=== PATIENT | male | born 1970 | race Caucasian/White ===

== ENCOUNTER 2018-12-08 16:58 | Inpatient (IN) | payer OTHER ==
[2018-12-08] MEDS ORDERED: NITROGLYCERIN (SL) 0.4 MG TAB SL (17:30)
[2018-12-08 17:36] LABS: ADD MAN DIFF? NO
[2018-12-08 17:39] LABS: WHITE BLOOD COUNT 7.4 10^3/ul (4.8-10.8)
[2018-12-08 17:39] LABS: BASOPHIL # 0.1 10^3/ul (0.0-0.1); BASOPHILS % 0.7 % (0.0-2.0); EOSINOPHILS # 0.1 10^3/ul (0.0-0.5); EOSINOPHILS % 1.1 % (0.0-7.0); HEMATOCRIT 44.9 % (42.0-52.0); HEMOGLOBIN 14.2 g/dl (14.0-18.0); LYMPHOCYTES # 1.7 10^3/ul (0.8-2.9); LYMPHOCYTES % 22.4 % (15.0-51.0); MEAN CORPUSCULAR HEMOGLOBIN 27.7 pg (29.0-33.0); MEAN CORPUSCULAR HGB CONC 31.6 g/dl (32.0-37.0); MEAN CORPUSCULAR VOLUME 87.7 fl (82.0-101.0); MEAN PLATELET VOLUME 9.8 fl (7.4-10.4); MONOCYTE # 0.8 10^3/ul (0.3-0.9); MONOCYTES % 11.3 % (0.0-11.0); NEUTROPHIL # 4.7 10^3/ul (1.6-7.5); NEUTROPHILS % 63.4 % (39.0-77.0); PLATELET COUNT 225 10^3/UL (140-415); RED BLOOD COUNT 5.12 10^6/ul (4.70-6.10); RED CELL DISTRIBUTION WIDTH 12.6 % (11.5-14.5)
[2018-12-08] MEDS: ASPIRIN 81 MG TAB PO ×2 (17:40→19:00)
[2018-12-08] MEDS: NITROGLYCERIN 2% 1 GM OINT PKT TD (17:41)
[2018-12-08 18:10] LABS: ANION GAP 8 (5-13); BLOOD UREA NITROGEN 20 mg/dl (7-20); CALCIUM 9.5 mg/dl (8.4-10.2); CARBON DIOXIDE 31 mmol/L (21-31); CHLORIDE 106 mmol/L (97-110); CREATININE 1.04 mg/dl (0.61-1.24); Estimated GFR > 60 mL/min (>60); GLUCOSE 145 mg/dl (70-220); SODIUM 145 mmol/L (135-144)
[2018-12-08 18:23] LABS: TROPONIN-I < 0.012 ng/ml (0.000-0.120)
[2018-12-08] MEDS ORDERED: DOCUSATE SODIUM 100 MG CAP PO (19:00)
[2018-12-08] MEDS ORDERED: ZOLPIDEM 5 MG TAB PO (19:00)
[2018-12-08] MEDS ORDERED: ONDANSETRON 4 MG INJ IV (19:00)
[2018-12-08] MEDS ORDERED: NACL 0.9% 3 ML SYG IV (19:00)
[2018-12-08] MEDS ORDERED: ACETAMINOPHEN 325 MG TAB PO ×2 (19:00)
[2018-12-08] MEDS ORDERED: LORAZEPAM 0.5 MG TAB PO (19:00)
[2018-12-08] MEDS ORDERED: ONDANSETRON 4 MG TAB PO (19:00)
[2018-12-08] MEDS ORDERED: HYDROCODONE/APAP (5/325) TAB PO (19:00)
[2018-12-08 19:29] LABS: CREATINE KINASE 306 IU/L (23-200)
[2018-12-08] MEDS ORDERED: GLUCAGON 1 MG INJ IM (19:30)
[2018-12-08] MEDS ORDERED: GLUCOSE GEL 15 GRAM TUBE PO ×2 (19:30)
[2018-12-08] MEDS ORDERED: DEXTROSE 50% 50 ML SYRINGE IV ×2 (19:30)
[2018-12-08] MEDS ORDERED: GLUCOSE GEL 15 GRAM TUBE BUCCAL (19:30)
[2018-12-08 19:39] LABS: CK-MB 1.77 ng/ml (0.0-2.4)
[2018-12-08] MEDS: INSULIN ASPART [NOVOLOG] 3 ML PEN SC (21:00)
[2018-12-08] MEDS: PIOGLITAZONE 30 MG TAB PO (21:00)
[2018-12-08] MEDS: ACCU-CHEK XX (21:20)
[2018-12-08] MEDS: FAMOTIDINE 20 MG TAB PO (22:14)
[2018-12-08] MEDS: FISH OIL 1,000 MG CAP PO (22:15)
[2018-12-08] MEDS: ATORVASTATIN 20 MG TAB PO (22:15)
[2018-12-08] MEDS: METOPROLOL 25 MG TAB PO (22:16)
[2018-12-08] MEDS: HEPARIN 5,000 UNIT/1 ML VIAL SC (22:30)
[2018-12-08 23:57] LABS: CREATINE KINASE 302 IU/L (23-200)
[2018-12-09 00:10] LABS: CK INDEX 0.7; CK-MB 2.01 ng/ml (0.0-2.4); TROPONIN-I 0.077 ng/ml (0.000-0.120)
[2018-12-09 06:46] LABS: ADD MAN DIFF? NO
[2018-12-09 07:01] LABS: BASOPHILS % 0.5 % (0.0-2.0); EOSINOPHILS # 0.1 10^3/ul (0.0-0.5); EOSINOPHILS % 1.4 % (0.0-7.0); HEMATOCRIT 40.7 % (42.0-52.0); LYMPHOCYTES # 1.8 10^3/ul (0.8-2.9); LYMPHOCYTES % 27.9 % (15.0-51.0); MEAN CORPUSCULAR HGB CONC 31.9 g/dl (32.0-37.0); MEAN CORPUSCULAR VOLUME 87.7 fl (82.0-101.0); MEAN PLATELET VOLUME 10.2 fl (7.4-10.4); MONOCYTE # 0.6 10^3/ul (0.3-0.9); MONOCYTES % 9.5 % (0.0-11.0); NEUTROPHIL # 3.8 10^3/ul (1.6-7.5); NEUTROPHILS % 59.8 % (39.0-77.0); PLATELET COUNT 193 10^3/UL (140-415); RED BLOOD COUNT 4.64 10^6/ul (4.70-6.10); RED CELL DISTRIBUTION WIDTH 12.7 % (11.5-14.5)
[2018-12-09 07:01] LABS: WHITE BLOOD COUNT 6.3 10^3/ul (4.8-10.8)
[2018-12-09 07:17] LABS: CREATINE KINASE 309 IU/L (23-200)
[2018-12-09] MEDS: ACCU-CHEK XX ×6 (07:25→19:48)
[2018-12-09 07:29] LABS: CK INDEX 0.8
[2018-12-09 07:41] LABS: CK-MB 2.46 ng/ml (0.0-2.4)
[2018-12-09 07:44] LABS: TROPONIN-I 0.242 ng/ml (0.000-0.120)
[2018-12-09] MEDS ORDERED: metFORMIN (XR) 500 MG TAB PO (07:55)
[2018-12-09] MEDS: INSULIN ASPART [NOVOLOG] 3 ML PEN SC ×4 (07:55→20:14)
[2018-12-09 08:07] LABS: ALANINE AMINOTRANSFERASE 47 IU/L (13-69); ALBUMIN 3.8 g/dl (3.3-4.9); ALBUMIN/GLOBULIN RATIO 1.65; ALKALINE PHOSPHATASE 41 IU/L (42-121); ANION GAP 8 (5-13); ASPARTATE AMINO TRANSFERASE 24 IU/L (15-46); BILIRUBIN,INDIRECT 0.2 mg/dl (0-1.1); BILIRUBIN,TOTAL 0.2 mg/dl (0.2-1.3); BLOOD UREA NITROGEN 19 mg/dl (7-20); CALCIUM 9.3 mg/dl (8.4-10.2); CARBON DIOXIDE 27 mmol/L (21-31); CHLORIDE 109 mmol/L (97-110); CREATININE 0.89 mg/dl (0.61-1.24); Estimated GFR > 60 mL/min (>60); GLUCOSE 108 mg/dl (70-220); POTASSIUM 4.1 mmol/L (3.5-5.1); SODIUM 144 mmol/L (135-144); TOTAL PROTEIN 6.1 g/dl (6.1-8.1)
[2018-12-09] MEDS ORDERED: FENTAnyl 50 MCG/ML VIAL (08:27)
[2018-12-09] MEDS ORDERED: HEPARIN 1000 UNITS/NS (A-LINE) 1,000 ML (08:27)
[2018-12-09] MEDS ORDERED: MIDAZOLAM 1 MG/ML 2 ML INJ (08:27)
[2018-12-09] MEDS ORDERED: VERAPAMIL 5 MG INJ (08:27)
[2018-12-09] MEDS ORDERED: HEPARIN 1000 UNITS/ML 10 ML INJ (08:27)
[2018-12-09] MEDS ORDERED: LIDOCAINE 1% (MDV) 20 ML INJ (08:27)
[2018-12-09] MEDS ORDERED: NITROGLYCERIN (IC) 100 MCG/ML INJ (08:28)
[2018-12-09 09:21] LABS: HEMOGLOBIN A1C 7.5 % (0-5.9)
[2018-12-09] MEDS ORDERED: IOHEXOL 350MG/ML 50 ML BTL (09:37)
[2018-12-09] MEDS: NITROGLYCERIN (SL) 0.4 MG TAB SL ×2 (12:15→14:06)
[2018-12-09] MEDS: ASPIRIN 81 MG TAB PO (12:41)
[2018-12-09] MEDS: FISH OIL 1,000 MG CAP PO ×2 (12:41→20:13)
[2018-12-09] MEDS: METOPROLOL 25 MG TAB PO ×2 (12:43→20:14)
[2018-12-09] MEDS: FAMOTIDINE 20 MG TAB PO ×2 (12:43→20:13)
[2018-12-09] MEDS: FENOFIBRATE 145 MG TAB PO (12:43)
[2018-12-09] MEDS: ISOSORBIDE MONONITRATE(SR)30 MG TAB PO (13:03)
[2018-12-09] MEDS: EMPAGLIFLOZIN 10 MG TABLET PO (13:03)
[2018-12-09 13:29] LABS: ADD MAN DIFF? NO
[2018-12-09 13:31] LABS: BASOPHILS % 0.5 % (0.0-2.0); EOSINOPHILS # 0.1 10^3/ul (0.0-0.5); EOSINOPHILS % 0.7 % (0.0-7.0); HEMOGLOBIN 13.7 g/dl (14.0-18.0); LYMPHOCYTES # 1.7 10^3/ul (0.8-2.9); LYMPHOCYTES % 21.2 % (15.0-51.0); MEAN CORPUSCULAR HEMOGLOBIN 27.8 pg (29.0-33.0); MEAN CORPUSCULAR HGB CONC 31.9 g/dl (32.0-37.0); MEAN CORPUSCULAR VOLUME 87.2 fl (82.0-101.0); MEAN PLATELET VOLUME 10.3 fl (7.4-10.4); MONOCYTE # 0.7 10^3/ul (0.3-0.9); MONOCYTES % 8.8 % (0.0-11.0); NEUTROPHIL # 5.6 10^3/ul (1.6-7.5); NEUTROPHILS % 67.9 % (39.0-77.0); PLATELET COUNT 231 10^3/UL (140-415); RED BLOOD COUNT 4.93 10^6/ul (4.70-6.10); RED CELL DISTRIBUTION WIDTH 12.8 % (11.5-14.5)
[2018-12-09 13:31] LABS: WHITE BLOOD COUNT 8.2 10^3/ul (4.8-10.8)
[2018-12-09 13:50] LABS: INR 0.86; PROTIME 11.8 Sec (11.9-14.9); PT RATIO 0.9
[2018-12-09 13:51] LABS: PARTIAL THROMBOPLASTIN TIME 25.8 Sec (23.0-35.0)
[2018-12-09 14:05] LABS: CK-MB 2.12 ng/ml (0.0-2.4); TROPONIN-I 0.111 ng/ml (0.000-0.120)
[2018-12-09 16:11] LABS: CK INDEX 0.7; CREATINE KINASE 299 IU/L (23-200)
[2018-12-09] MEDS: HEPARIN 1000 UNITS/ML 10 ML INJ IV (16:16)
[2018-12-09] MEDS: HEPARIN 25000 UNITS/250 ML 250 ML IV (16:28)
[2018-12-09] MEDS: CEFAZOLIN 2 GM/50 ML (PMX) 50 ML IVPB (20:12)
[2018-12-09] MEDS: PIOGLITAZONE 30 MG TAB PO (20:13)
[2018-12-09] MEDS: ATORVASTATIN 20 MG TAB PO (20:13)
[2018-12-09] MEDS ORDERED: ATORVASTATIN 20 MG TAB PO (21:00)
[2018-12-09 23:01] LABS: PARTIAL THROMBOPLASTIN TIME 25.8 Sec (23.0-35.0)
[2018-12-10] MEDS: HEPARIN 1000 UNITS/ML 10 ML INJ IV (00:15)
[2018-12-10 07:38] LABS: ADD MAN DIFF? NO
[2018-12-10 07:42] LABS: WHITE BLOOD COUNT 7.9 10^3/ul (4.8-10.8)
[2018-12-10 07:42] LABS: BASOPHILS % 0.3 % (0.0-2.0); EOSINOPHILS # 0.1 10^3/ul (0.0-0.5); EOSINOPHILS % 0.8 % (0.0-7.0); HEMATOCRIT 43.2 % (42.0-52.0); LYMPHOCYTES # 1.5 10^3/ul (0.8-2.9); LYMPHOCYTES % 18.4 % (15.0-51.0); MEAN CORPUSCULAR HEMOGLOBIN 27.9 pg (29.0-33.0); MEAN CORPUSCULAR HGB CONC 32.4 g/dl (32.0-37.0); MEAN CORPUSCULAR VOLUME 86.1 fl (82.0-101.0); MEAN PLATELET VOLUME 9.7 fl (7.4-10.4); MONOCYTE # 0.9 10^3/ul (0.3-0.9); MONOCYTES % 10.9 % (0.0-11.0); NEUTROPHIL # 5.5 10^3/ul (1.6-7.5); PLATELET COUNT 209 10^3/UL (140-415); RED BLOOD COUNT 5.02 10^6/ul (4.70-6.10)
[2018-12-10] MEDS: INSULIN ASPART [NOVOLOG] 3 ML PEN SC (07:55)
[2018-12-10 08:02] LABS: PARTIAL THROMBOPLASTIN TIME 30.7 Sec (23.0-35.0)
[2018-12-10] MEDS: ACCU-CHEK XX ×6 (08:03→23:46)
[2018-12-10 08:08] LABS: CHOL/HDL RATIO 3.3 RATIO; HDL CHOLESTEROL 37 mg/dl (27-67); LDL CHOLESTEROL,CALCULATED 53 mg/dl; TRIGLYCERIDES 174 mg/dl (0-149)
[2018-12-10 08:08] LABS: CHOLESTEROL 125 mg/dl (100-200)
[2018-12-10 08:09] LABS: ANION GAP 10 (5-13); BLOOD UREA NITROGEN 17 mg/dl (7-20); CARBON DIOXIDE 27 mmol/L (21-31); CHLORIDE 106 mmol/L (97-110); CREATININE 1.02 mg/dl (0.61-1.24); Estimated GFR > 60 mL/min (>60); GLUCOSE 138 mg/dl (70-220); SODIUM 143 mmol/L (135-144)
[2018-12-10 08:10] LABS: CALCIUM 9.4 mg/dl (8.4-10.2)
[2018-12-10] MEDS: METOPROLOL 25 MG TAB PO (08:23)
[2018-12-10] MEDS: FAMOTIDINE 20 MG TAB PO (08:23)
[2018-12-10] MEDS: FISH OIL 1,000 MG CAP PO (08:23)
[2018-12-10] MEDS: ASPIRIN 81 MG TAB PO (08:23)
[2018-12-10] MEDS: FENOFIBRATE 145 MG TAB PO (08:23)
[2018-12-10] MEDS: ISOSORBIDE MONONITRATE(SR)30 MG TAB PO (08:23)
[2018-12-10] MEDS: EMPAGLIFLOZIN 10 MG TABLET PO (08:23)
[2018-12-10] MEDS ORDERED: MIDAZOLAM 5 ML ×2 (10:06→10:10)
[2018-12-10] MEDS ORDERED: PROPOFOL 100 ML (10:11)
[2018-12-10] MEDS ORDERED: HEPARIN 1000 UNITS/ML 10 ML INJ ×2 (10:12→11:55)
[2018-12-10] MEDS ORDERED: ETOMIDATE 20 MG INJ (10:28)
[2018-12-10] MEDS ORDERED: PROPOFOL 20 ML (10:28)
[2018-12-10] MEDS ORDERED: AMINOCAPROIC ACID 5 GM INJ (10:28)
[2018-12-10] MEDS ORDERED: LIDOCAINE 2% (SDV) 5 ML INJ (10:29)
[2018-12-10] MEDS ORDERED: PROTAMINE 250 MG INJ (10:38)
[2018-12-10] MEDS ORDERED: SUCCINYLCHOLINE CHLORIDE 100 MG/5 ML SYG IV (10:38)
[2018-12-10] MEDS ORDERED: ROCURONIUM 50 MG INJ (10:38)
[2018-12-10] MEDS: PAPAVERINE 60 MG INJ (11:06)
[2018-12-10] MEDS: VANCOMYCIN 1 GM INJ (11:06)
[2018-12-10] MEDS: HEPARIN 1000 UNITS/ML 10 ML INJ (11:06)
[2018-12-10] MEDS: ASPIRIN 600 MG SUPP PR (11:30)
[2018-12-10] MEDS ORDERED: CA CHLORIDE 10% 10 ML SYRINGE ×2 (11:55→15:51)
[2018-12-10] MEDS ORDERED: FENTAnyl 50 MCG/ML VIAL IV ×2 (12:00)
[2018-12-10] MEDS ORDERED: ONDANSETRON 4 MG INJ IV (12:00)
[2018-12-10] MEDS ORDERED: LEVALBUTEROL (NEB) 1.25 MG/0.5 ML AMP HHN (12:00)
[2018-12-10] MEDS ORDERED: MIDAZOLAM 1 MG/ML 2 ML INJ IV (12:00)
[2018-12-10] MEDS ORDERED: morphine 2 MG INJ IV ×2 (12:00)
[2018-12-10] MEDS ORDERED: hydrALAzine 20 MG INJ IV (12:00)
[2018-12-10] MEDS ORDERED: LORAZEPAM 2 MG INJ IV (12:00)
[2018-12-10] MEDS ORDERED: HYDROmorphONE 0.5 MG/0.5 ML SYG IV ×5 (12:00→16:30)
[2018-12-10] MEDS ORDERED: morphine 10 MG INJ IV (12:00)
[2018-12-10] MEDS ORDERED: DIPHENHYDRAMINE 50 MG INJ IV (12:00)
[2018-12-10] MEDS ORDERED: IPRATROPIUM (NEB) 0.5 MG/2.5 ML AMP HHN (12:00)
[2018-12-10] MEDS ORDERED: MEPERIDINE 25 MG INJ IV (12:00)
[2018-12-10] MEDS ORDERED: INSULIN REGULAR, HUMAN 100 UNIT/1 ML 3ML VIAL (12:00)
[2018-12-10] MEDS ORDERED: MILRINONE LACTATE 1 MG/ML VIAL (12:00)
[2018-12-10] MEDS ORDERED: LABETALOL HCL 20MG INJ IV (12:00)
[2018-12-10] MEDS ORDERED: ALBUMIN HUMAN 25% 100 ML INJ (12:00)
[2018-12-10] MEDS ORDERED: CEFAZOLIN 1 GM INJ (12:58)
[2018-12-10] MEDS ORDERED: NITROGLYCERIN 50 MG/D5W (PMX) 250 ML (13:13)
[2018-12-10] MEDS ORDERED: morphine 10 MG INJ (13:21)
[2018-12-10] MEDS ORDERED: FUROSEMIDE 20 MG INJ ×2 (15:05→15:23)
[2018-12-10] MEDS ORDERED: NA BICARBONATE 8.4% 50 ML SYG (15:51)
[2018-12-10] MEDS ORDERED: DEXTROSE 50% 50 ML SYRINGE (16:29)
[2018-12-10] MEDS ORDERED: ACCU-CHEK XX (16:30)
[2018-12-10] MEDS: EPINEPHrine 4 MG in DEXTROSE 5% 246 ML IV (16:30)
[2018-12-10] MEDS ORDERED: DEXTROSE 50% 50 ML SYRINGE IV ×4 (16:30→20:30)
[2018-12-10] MEDS: HEPARIN (10000 UNITS/ML) 10,000 UNIT, MILRINONE LACTATE 10 MG in SOD CHLORIDE 0.9% 1,00... SC (16:30)
[2018-12-10] MEDS ORDERED: DOPamine-D5W 1.6 MG/ML 250 ML IV (16:30)
[2018-12-10] MEDS: NORepinephrine 8MG/250 ML (PMX 250 ML IV (16:30)
[2018-12-10] MEDS ORDERED: INSULIN HUMAN REGULAR 100 UNIT in SOD CHLORIDE 0.9% 99 ML IV (16:30)
[2018-12-10] MEDS ORDERED: ACETAMINOPHEN 325 MG TAB PO (16:30)
[2018-12-10] MEDS: MILRINONE LACTATE 2 MG in SOD CHLORIDE 0.9% 50 ML IV (16:30)
[2018-12-10] MEDS ORDERED: MAGNESIUM SULFATE 1 GM/D5W 100 ML IVPB (16:30)
[2018-12-10] MEDS: INSULIN HUMAN REGULAR 100 UNIT in SOD CHLORIDE 0.9% 99 ML IVPB (16:30)
[2018-12-10] MEDS: PHENYLephrine 20MG IN 250 ML 250 ML IV (16:32)
[2018-12-10] MEDS ORDERED: morphine 2 MG INJ (16:39)
[2018-12-10 16:40] LABS: ADD MAN DIFF? NO
[2018-12-10 16:41] LABS: BASOPHILS % 0.3 % (0.0-2.0); EOSINOPHILS % 0.5 % (0.0-7.0); HEMATOCRIT 28.6 % (42.0-52.0); HEMOGLOBIN 9.4 g/dl (14.0-18.0); LYMPHOCYTES # 1.5 10^3/ul (0.8-2.9); LYMPHOCYTES % 19.5 % (15.0-51.0); MEAN CORPUSCULAR HEMOGLOBIN 28.4 pg (29.0-33.0); MEAN CORPUSCULAR HGB CONC 32.9 g/dl (32.0-37.0); MEAN CORPUSCULAR VOLUME 86.4 fl (82.0-101.0); MONOCYTE # 0.7 10^3/ul (0.3-0.9); MONOCYTES % 9.8 % (0.0-11.0); NEUTROPHIL # 5.2 10^3/ul (1.6-7.5); NEUTROPHILS % 69.4 % (39.0-77.0); PLATELET COUNT 131 10^3/UL (140-415); RED BLOOD COUNT 3.31 10^6/ul (4.70-6.10); RED CELL DISTRIBUTION WIDTH 12.8 % (11.5-14.5)
[2018-12-10 16:41] LABS: WHITE BLOOD COUNT 7.5 10^3/ul (4.8-10.8)
[2018-12-10] MEDS ORDERED: POTASSIUM CHLORIDE 100 ML (17:01)
[2018-12-10] MEDS ORDERED: ALBUMIN HUMAN 5% 250 ML (17:01)
[2018-12-10 17:03] LABS: ANION GAP 9 (5-13); BLOOD UREA NITROGEN 15 mg/dl (7-20); CALCIUM 11.7 mg/dl (8.4-10.2); CARBON DIOXIDE 26 mmol/L (21-31); CHLORIDE 110 mmol/L (97-110); CREATININE 1.02 mg/dl (0.61-1.24); Estimated GFR > 60 mL/min (>60); GLUCOSE 213 mg/dl (70-220); MAGNESIUM 2.7 mg/dl (1.7-2.5); POTASSIUM 3.6 mmol/L (3.5-5.1); SODIUM 145 mmol/L (135-144)
[2018-12-10 17:07] LABS: PROTIME 15.3 Sec (11.9-14.9); PT RATIO 1.2
[2018-12-10 17:08] LABS: PARTIAL THROMBOPLASTIN TIME 29.3 Sec (23.0-35.0)
[2018-12-10] MEDS: morphine 2 MG INJ IV (17:34)
[2018-12-10] MEDS: POTASSIUM CHLORIDE 50 ML IVPB ×3 (17:35→18:47)
[2018-12-10 17:56] LABS: AADO2 Arterial 605.5 mmHg (7.0-24.0); Arterial Base Excess 2.8 mmol/L (-3.0-3); Arterial Blood Gas Oxygen Sat 93.4 mmHG (95.0-98.0); Arterial COHb 0.3 % (0.0-3.0); Arterial Fraction of Oxyhgb 92.9 % (93.0-99.0); Arterial HCO3 26.9 mmol/L (22.0-26.0); Arterial MetHb 0.2 % (0.0-1.5); Arterial pCO2 39.6 mmhg (35-45); MODE VENT - AC; Site A-Line
[2018-12-10] MEDS: NITROGLYCERIN 50 MG/D5W (PMX) 250 ML IV (18:07)
[2018-12-10] MEDS ORDERED: ALBUMIN HUMAN 5% 250 ML IV (18:30)
[2018-12-10] MEDS: PROPOFOL 100 ML IV (18:46)
[2018-12-10] MEDS: POTASSIUM CHLORIDE 40 MEQ, CALCIUM CHLORIDE 10% 1 GM in DEXTROSE 5%-0.225% NACL 1,000 ML IV (18:53)
[2018-12-10] MEDS: FAMOTIDINE 20 MG INJ IV (20:00)
[2018-12-10] MEDS: INSULIN HUMAN REGULAR 100 UNIT in SOD CHLORIDE 0.9% 99 ML IV (20:32)
[2018-12-10 20:53] LABS: ABNORMAL IP MESSAGE 1; ADD MAN DIFF? NO; BASOPHILS % 0.1 % (0.0-2.0); EOSINOPHILS % 0.1 % (0.0-7.0); HEMATOCRIT 33.7 % (42.0-52.0); HEMOGLOBIN 10.6 g/dl (14.0-18.0); LYMPHOCYTES # 1.7 10^3/ul (0.8-2.9); LYMPHOCYTES % 12.6 % (15.0-51.0); MEAN CORPUSCULAR HEMOGLOBIN 27.5 pg (29.0-33.0); MEAN CORPUSCULAR HGB CONC 31.5 g/dl (32.0-37.0); MEAN CORPUSCULAR VOLUME 87.5 fl (82.0-101.0); MEAN PLATELET VOLUME 10.2 fl (7.4-10.4); MONOCYTE # 1.6 10^3/ul (0.3-0.9); MONOCYTES % 11.7 % (0.0-11.0); NEUTROPHIL # 10.3 10^3/ul (1.6-7.5); NEUTROPHILS % 74.9 % (39.0-77.0); PLATELET COUNT 189 10^3/UL (140-415); POSITIVE DIFF @See below; RED BLOOD COUNT 3.85 10^6/ul (4.70-6.10); RED CELL DISTRIBUTION WIDTH 13.1 % (11.5-14.5)
[2018-12-10 20:53] LABS: WHITE BLOOD COUNT 13.8 10^3/ul (4.8-10.8)
[2018-12-10] MEDS ORDERED: FAMOTIDINE 20 MG TAB PO (21:00)
[2018-12-10] MEDS: ATORVASTATIN 80 MG TAB PO (21:00)
[2018-12-10] MEDS: CEFAZOLIN 1 GM/50 ML (PMX) 50 ML IVPB (21:01)
[2018-12-10 21:17] LABS: ANION GAP 13 (5-13); BLOOD UREA NITROGEN 17 mg/dl (7-20); CALCIUM 10.9 mg/dl (8.4-10.2); CARBON DIOXIDE 23 mmol/L (21-31); CHLORIDE 109 mmol/L (97-110); CREATININE 1.28 mg/dl (0.61-1.24); Estimated GFR 60 mL/min (>60); GLUCOSE 219 mg/dl (70-220); MAGNESIUM 2.5 mg/dl (1.7-2.5); PHOSPHORUS 6.9 mg/dl (2.5-4.9); POTASSIUM 4.6 mmol/L (3.5-5.1); SODIUM 145 mmol/L (135-144)
[2018-12-10 22:54] LABS: AADO2 Arterial 269.6 mmHg (7.0-24.0); Arterial Base Excess 1.1 mmol/L (-3.0-3); Arterial Blood Gas Oxygen Sat 97.2 mmHG (95.0-98.0); Arterial COHb 0.3 % (0.0-3.0); Arterial Fraction of Oxyhgb 96.5 % (93.0-99.0); Arterial HCO3 26.6 mmol/L (22.0-26.0); Arterial MetHb 0.4 % (0.0-1.5); Arterial pCO2 45.7 mmhg (35-45); MODE VENT - AC; Site A-Line
[2018-12-11 00:16] LABS: AADO2 Arterial 95.1 mmHg (7.0-24.0); Arterial Base Excess 2.3 mmol/L (-3.0-3); Arterial Blood Gas Oxygen Sat 91.8 mmHG (95.0-98.0); Arterial COHb 0.3 % (0.0-3.0); Arterial Fraction of Oxyhgb 91.2 % (93.0-99.0); Arterial HCO3 27.4 mmol/L (22.0-26.0); Arterial MetHb 0.4 % (0.0-1.5); Arterial pCO2 44.5 mmhg (35-45); Blood Gas PS 8; MODE VENT - CPAP; Site A-Line
[2018-12-11] MEDS: ACCU-CHEK XX ×23 (00:59→23:31)
[2018-12-11] MEDS: ONDANSETRON 4 MG INJ IV (01:03)
[2018-12-11] MEDS: CEFAZOLIN 1 GM/50 ML (PMX) 50 ML IVPB ×2 (04:49→12:15)
[2018-12-11 05:22] LABS: ADD MAN DIFF? NO
[2018-12-11 05:30] LABS: WHITE BLOOD COUNT 11.9 10^3/ul (4.8-10.8)
[2018-12-11 05:30] LABS: ABNORMAL IP MESSAGE 1; BASOPHILS % 0.2 % (0.0-2.0); HEMATOCRIT 35.1 % (42.0-52.0); HEMOGLOBIN 11.2 g/dl (14.0-18.0); LYMPHOCYTES # 0.6 10^3/ul (0.8-2.9); LYMPHOCYTES % 4.8 % (15.0-51.0); MEAN CORPUSCULAR HEMOGLOBIN 28.1 pg (29.0-33.0); MEAN CORPUSCULAR HGB CONC 31.9 g/dl (32.0-37.0); MEAN CORPUSCULAR VOLUME 88.2 fl (82.0-101.0); MEAN PLATELET VOLUME 10.9 fl (7.4-10.4); MONOCYTE # 1.4 10^3/ul (0.3-0.9); NEUTROPHIL # 9.8 10^3/ul (1.6-7.5); NEUTROPHILS % 82.5 % (39.0-77.0); PLATELET COUNT 184 10^3/UL (140-415); POSITIVE DIFF @See below; RED BLOOD COUNT 3.98 10^6/ul (4.70-6.10); RED CELL DISTRIBUTION WIDTH 13.2 % (11.5-14.5)
[2018-12-11 05:37] LABS: AADO2 Arterial 86.5 mmHg (7.0-24.0); Arterial Base Excess -0.2 mmol/L (-3.0-3); Arterial Blood Gas Oxygen Sat 92.3 mmHG (95.0-98.0); Arterial COHb 0.3 % (0.0-3.0); Arterial Fraction of Oxyhgb 91.7 % (93.0-99.0); Arterial HCO3 24.7 mmol/L (22.0-26.0); Arterial MetHb 0.3 % (0.0-1.5); MODE NASAL CANNULA; Site A-Line
[2018-12-11 05:41] LABS: INR 1.03; PROTIME 13.6 Sec (11.9-14.9); PT RATIO 1.1
[2018-12-11 06:02] LABS: ANION GAP 10 (5-13); BLOOD UREA NITROGEN 15 mg/dl (7-20); CALCIUM 10.6 mg/dl (8.4-10.2); CARBON DIOXIDE 28 mmol/L (21-31); CHLORIDE 110 mmol/L (97-110); CREATININE 1.13 mg/dl (0.61-1.24); Estimated GFR > 60 mL/min (>60); GLUCOSE 122 mg/dl (70-220); MAGNESIUM 2.3 mg/dl (1.7-2.5); POTASSIUM 4.7 mmol/L (3.5-5.1); SODIUM 148 mmol/L (135-144)
[2018-12-11] MEDS: PROPOFOL 100 ML IV (06:30)
[2018-12-11] MEDS: FAMOTIDINE 20 MG INJ IV ×2 (08:24→20:38)
[2018-12-11] MEDS: FUROSEMIDE 20 MG INJ IV ×3 (08:28→11:10)
[2018-12-11] MEDS: ENOXAPARIN 40 MG/0.4 ML SYG SC (08:29)
[2018-12-11] MEDS: OXYCODONE/ACETAMINOPHEN (5/325) TAB PO (08:32)
[2018-12-11] MEDS ORDERED: ASPIRIN (EC) 81 MG TAB PO (09:00)
[2018-12-11] MEDS: FUROSEMIDE 20 MG INJ IM (09:06)
[2018-12-11] MEDS: METOPROLOL 25 MG TAB PO ×2 (09:06→20:39)
[2018-12-11] MEDS: ASPIRIN (EC) 325 MG TAB PO (09:15)
[2018-12-11] MEDS: IBUPROFEN 600 MG TAB PO ×3 (09:15→20:39)
[2018-12-11] MEDS: POTASSIUM CHLORIDE 40 MEQ, CALCIUM CHLORIDE 10% 1 GM in DEXTROSE 5%-0.225% NACL 1,000 ML IV (11:40)
[2018-12-11] MEDS ORDERED: GLUCOSE GEL 15 GRAM TUBE BUCCAL (18:30)
[2018-12-11] MEDS ORDERED: GLUCAGON 1 MG INJ IM (18:30)
[2018-12-11] MEDS ORDERED: GLUCOSE GEL 15 GRAM TUBE PO ×2 (18:30)
[2018-12-11] MEDS ORDERED: DEXTROSE 50% 50 ML SYRINGE IV ×2 (18:30)
[2018-12-11] MEDS: ATORVASTATIN 80 MG TAB PO (20:38)
[2018-12-11] MEDS ORDERED: metFORMIN (XR) 500 MG TAB PO (21:00)
[2018-12-12] MEDS: ACCU-CHEK XX ×9 (00:42→08:35)
[2018-12-12] MEDS: POTASSIUM CHLORIDE 40 MEQ, CALCIUM CHLORIDE 10% 1 GM in DEXTROSE 5%-0.225% NACL 1,000 ML IV ×2 (03:56→22:00)
[2018-12-12 05:06] LABS: ADD MAN DIFF? NO
[2018-12-12 05:11] LABS: WHITE BLOOD COUNT 11.6 10^3/ul (4.8-10.8)
[2018-12-12 05:11] LABS: BASOPHILS % 0.3 % (0.0-2.0); EOSINOPHILS # 0.2 10^3/ul (0.0-0.5); EOSINOPHILS % 1.6 % (0.0-7.0); HEMATOCRIT 35.3 % (42.0-52.0); HEMOGLOBIN 11.1 g/dl (14.0-18.0); LYMPHOCYTES % 8.7 % (15.0-51.0); MEAN CORPUSCULAR HEMOGLOBIN 27.8 pg (29.0-33.0); MEAN CORPUSCULAR HGB CONC 31.4 g/dl (32.0-37.0); MEAN CORPUSCULAR VOLUME 88.5 fl (82.0-101.0); MEAN PLATELET VOLUME 10.5 fl (7.4-10.4); MONOCYTE # 1.5 10^3/ul (0.3-0.9); MONOCYTES % 12.6 % (0.0-11.0); NEUTROPHIL # 8.8 10^3/ul (1.6-7.5); NEUTROPHILS % 76.4 % (39.0-77.0); PLATELET COUNT 146 10^3/UL (140-415); RED BLOOD COUNT 3.99 10^6/ul (4.70-6.10); RED CELL DISTRIBUTION WIDTH 13.3 % (11.5-14.5)
[2018-12-12 05:39] LABS: ANION GAP 7 (5-13); BLOOD UREA NITROGEN 19 mg/dl (7-20); CALCIUM 9.7 mg/dl (8.4-10.2); CARBON DIOXIDE 30 mmol/L (21-31); CHLORIDE 107 mmol/L (97-110); CREATININE 1.17 mg/dl (0.61-1.24); Estimated GFR > 60 mL/min (>60); GLUCOSE 111 mg/dl (70-220); POTASSIUM 4.3 mmol/L (3.5-5.1); SODIUM 144 mmol/L (135-144)
[2018-12-12] MEDS: ENOXAPARIN 40 MG/0.4 ML SYG SC (08:30)
[2018-12-12] MEDS: FAMOTIDINE 20 MG INJ IV ×2 (08:32→20:48)
[2018-12-12] MEDS: IBUPROFEN 600 MG TAB PO ×3 (08:33→20:47)
[2018-12-12] MEDS: EMPAGLIFLOZIN 10 MG TABLET PO (08:33)
[2018-12-12] MEDS: OXYCODONE/ACETAMINOPHEN (5/325) TAB PO (09:15)
[2018-12-12] MEDS: METOPROLOL 25 MG TAB PO ×2 (09:16→20:48)
[2018-12-12] MEDS: ASPIRIN 81 MG TAB PO (09:16)
[2018-12-12] MEDS: CLOPIDOGREL 75 MG TAB PO (09:16)
[2018-12-12] MEDS: metFORMIN (XR) 500 MG TAB PO ×2 (11:51→20:47)
[2018-12-12] MEDS: INSULIN ASPART [NOVOLOG] 3 ML PEN SC ×3 (11:58→20:45)
[2018-12-12] MEDS: DOCUSATE SODIUM 100 MG CAP PO ×2 (15:17→20:46)
[2018-12-12] MEDS: POLYETHYLENE GLYCOL 17 GM PACKET PO (15:19)
[2018-12-12] MEDS: REPAGLINIDE 1 MG TAB PO (17:27)
[2018-12-12] MEDS: ATORVASTATIN 80 MG TAB PO (20:47)
[2018-12-13 05:04] LABS: ADD MAN DIFF? NO
[2018-12-13 05:12] LABS: WHITE BLOOD COUNT 9.3 10^3/ul (4.8-10.8)
[2018-12-13 05:12] LABS: BASOPHILS % 0.4 % (0.0-2.0); EOSINOPHILS # 0.3 10^3/ul (0.0-0.5); EOSINOPHILS % 2.9 % (0.0-7.0); HEMATOCRIT 33.5 % (42.0-52.0); HEMOGLOBIN 10.6 g/dl (14.0-18.0); LYMPHOCYTES # 1.2 10^3/ul (0.8-2.9); LYMPHOCYTES % 13.4 % (15.0-51.0); MEAN CORPUSCULAR HEMOGLOBIN 27.9 pg (29.0-33.0); MEAN CORPUSCULAR HGB CONC 31.6 g/dl (32.0-37.0); MEAN CORPUSCULAR VOLUME 88.2 fl (82.0-101.0); MEAN PLATELET VOLUME 10.2 fl (7.4-10.4); MONOCYTE # 1.2 10^3/ul (0.3-0.9); MONOCYTES % 12.5 % (0.0-11.0); NEUTROPHIL # 6.5 10^3/ul (1.6-7.5); NEUTROPHILS % 70.2 % (39.0-77.0); PLATELET COUNT 191 10^3/UL (140-415)
[2018-12-13 05:31] LABS: ANION GAP 10 (5-13); BLOOD UREA NITROGEN 24 mg/dl (7-20); CALCIUM 9.4 mg/dl (8.4-10.2); CARBON DIOXIDE 28 mmol/L (21-31); CHLORIDE 106 mmol/L (97-110); CREATININE 1.01 mg/dl (0.61-1.24); Estimated GFR > 60 mL/min (>60); GLUCOSE 86 mg/dl (70-220); POTASSIUM 4.2 mmol/L (3.5-5.1); SODIUM 144 mmol/L (135-144)
[2018-12-13] MEDS: INSULIN ASPART [NOVOLOG] 3 ML PEN SC ×4 (07:35→21:00)
[2018-12-13] MEDS: REPAGLINIDE 1 MG TAB PO ×3 (07:56→17:40)
[2018-12-13] MEDS: ASPIRIN 81 MG TAB PO (09:01)
[2018-12-13] MEDS: FAMOTIDINE 20 MG INJ IV ×2 (09:01→22:17)
[2018-12-13] MEDS: DOCUSATE SODIUM 100 MG CAP PO ×2 (09:01→22:16)
[2018-12-13] MEDS: CLOPIDOGREL 75 MG TAB PO (09:02)
[2018-12-13] MEDS: metFORMIN (XR) 500 MG TAB PO ×2 (09:07→22:25)
[2018-12-13] MEDS: EMPAGLIFLOZIN 10 MG TABLET PO (09:07)
[2018-12-13] MEDS: METOPROLOL 25 MG TAB PO ×2 (09:08→22:26)
[2018-12-13] MEDS: IBUPROFEN 600 MG TAB PO ×2 (09:14→13:04)
[2018-12-13] MEDS: ENOXAPARIN 40 MG/0.4 ML SYG SC (09:25)
[2018-12-13] MEDS: OXYCODONE/ACETAMINOPHEN (5/325) TAB PO (13:47)
[2018-12-13] MEDS: ATORVASTATIN 80 MG TAB PO (22:16)
[2018-12-13] MEDS: IBUPROFEN 400 MG TAB PO (22:17)
[2018-12-14] MEDS: INSULIN ASPART [NOVOLOG] 3 ML PEN SC ×4 (08:00→21:00)
[2018-12-14] MEDS: FAMOTIDINE 20 MG INJ IV ×2 (08:56→21:31)
[2018-12-14] MEDS: CLOPIDOGREL 75 MG TAB PO (08:56)
[2018-12-14] MEDS: EMPAGLIFLOZIN 10 MG TABLET PO (08:57)
[2018-12-14] MEDS: REPAGLINIDE 1 MG TAB PO ×3 (08:57→17:07)
[2018-12-14] MEDS: ASPIRIN 81 MG TAB PO (08:57)
[2018-12-14] MEDS: METOPROLOL 25 MG TAB PO ×2 (08:58→21:31)
[2018-12-14] MEDS: DOCUSATE SODIUM 100 MG CAP PO ×2 (08:58→21:30)
[2018-12-14] MEDS: IBUPROFEN 400 MG TAB PO ×3 (08:59→21:31)
[2018-12-14] MEDS: metFORMIN (XR) 500 MG TAB PO ×2 (09:02→20:06)
[2018-12-14] MEDS: ENOXAPARIN 40 MG/0.4 ML SYG SC (09:13)
[2018-12-14] MEDS: ONDANSETRON 4 MG INJ IV (15:02)
[2018-12-14] MEDS: ATORVASTATIN 80 MG TAB PO (21:31)
[2018-12-14] MEDS: OXYCODONE/ACETAMINOPHEN (5/325) TAB PO (22:17)
[2018-12-15 06:08] LABS: ADD MAN DIFF? NO
[2018-12-15 06:22] LABS: BASOPHIL # 0.1 10^3/ul (0.0-0.1); EOSINOPHILS # 0.2 10^3/ul (0.0-0.5); EOSINOPHILS % 4.1 % (0.0-7.0); HEMATOCRIT 33.3 % (42.0-52.0); HEMOGLOBIN 10.7 g/dl (14.0-18.0); LYMPHOCYTES # 1.5 10^3/ul (0.8-2.9); LYMPHOCYTES % 25.9 % (15.0-51.0); MEAN CORPUSCULAR HEMOGLOBIN 27.9 pg (29.0-33.0); MEAN CORPUSCULAR HGB CONC 32.1 g/dl (32.0-37.0); MEAN CORPUSCULAR VOLUME 86.7 fl (82.0-101.0); MEAN PLATELET VOLUME 9.9 fl (7.4-10.4); MONOCYTE # 0.7 10^3/ul (0.3-0.9); MONOCYTES % 12.1 % (0.0-11.0); NEUTROPHIL # 3.1 10^3/ul (1.6-7.5); NEUTROPHILS % 53.3 % (39.0-77.0); NUCLEATED RED BLOOD CELLS% 0.3 /100WBC (0.0-0.0); PLATELET COUNT 272 10^3/UL (140-415); RED BLOOD COUNT 3.84 10^6/ul (4.70-6.10); RED CELL DISTRIBUTION WIDTH 12.9 % (11.5-14.5)
[2018-12-15 06:22] LABS: WHITE BLOOD COUNT 5.9 10^3/ul (4.8-10.8)
[2018-12-15 06:56] LABS: ANION GAP 8 (5-13); BLOOD UREA NITROGEN 25 mg/dl (7-20); CALCIUM 9.2 mg/dl (8.4-10.2); CARBON DIOXIDE 28 mmol/L (21-31); CHLORIDE 107 mmol/L (97-110); CREATININE 0.97 mg/dl (0.61-1.24); Estimated GFR > 60 mL/min (>60); GLUCOSE 101 mg/dl (70-220); POTASSIUM 3.9 mmol/L (3.5-5.1); SODIUM 143 mmol/L (135-144)
[2018-12-15] MEDS: INSULIN ASPART [NOVOLOG] 3 ML PEN SC ×4 (08:00→20:59)
[2018-12-15] MEDS: FAMOTIDINE 20 MG INJ IV ×2 (08:26→20:56)
[2018-12-15] MEDS: ASPIRIN 81 MG TAB PO (08:27)
[2018-12-15] MEDS: EMPAGLIFLOZIN 10 MG TABLET PO (08:27)
[2018-12-15] MEDS: metFORMIN (XR) 500 MG TAB PO ×2 (08:27→20:55)
[2018-12-15] MEDS: IBUPROFEN 400 MG TAB PO ×3 (08:28→20:55)
[2018-12-15] MEDS: DOCUSATE SODIUM 100 MG CAP PO ×2 (08:28→20:55)
[2018-12-15] MEDS: CLOPIDOGREL 75 MG TAB PO (08:28)
[2018-12-15] MEDS: METOPROLOL 25 MG TAB PO ×2 (08:30→20:56)
[2018-12-15] MEDS: ENOXAPARIN 40 MG/0.4 ML SYG SC (08:46)
[2018-12-15] MEDS: ATORVASTATIN 80 MG TAB PO (20:56)
[2018-12-16] MEDS: INSULIN ASPART [NOVOLOG] 3 ML PEN SC ×2 (07:22→12:00)
[2018-12-16] MEDS: EMPAGLIFLOZIN 10 MG TABLET PO (07:36)
[2018-12-16] MEDS: metFORMIN (XR) 500 MG TAB PO (07:38)
[2018-12-16] MEDS: FAMOTIDINE 20 MG INJ IV (09:41)
[2018-12-16] MEDS: CLOPIDOGREL 75 MG TAB PO (09:41)
[2018-12-16] MEDS: ASPIRIN 81 MG TAB PO (09:41)
[2018-12-16] MEDS: DOCUSATE SODIUM 100 MG CAP PO (09:41)
[2018-12-16] MEDS: METOPROLOL 25 MG TAB PO (09:42)
[2018-12-16] MEDS: ENOXAPARIN 40 MG/0.4 ML SYG SC (09:43)
[2018-12-16] MEDS: IBUPROFEN 400 MG TAB PO (09:47)
== END 2018-12-16 13:44 | disposition home or self-care (01) | DRG 233 ==
LOC: 6WM 12-13 13:27 → E/R 16:58 → ICU 12-10 14:00 → TEL 18:46
PROVIDERS: Internal Medicine
PROC: 02100Z9 Bypass Coronary Artery, One Artery from Left Internal Mammary, Open Approach (ICD-10-PCS; principal; 2018-12-09 08:26)
PROC: 4A023N7 Measurement of Cardiac Sampling and Pressure, Left Heart, Percutaneous Approach (ICD-10-PCS; 2018-12-09 08:26)
PROC: 021109W Bypass Coronary Artery, Two Arteries from Aorta with Autologous Venous Tissue, Open Approach (ICD-10-PCS; 2018-12-09 08:26)
PROC: 06BP4ZZ Excision of Right Saphenous Vein, Percutaneous Endoscopic Approach (ICD-10-PCS; 2018-12-09 08:26)
PROC: 5A1221Z Performance of Cardiac Output, Continuous (ICD-10-PCS; 2018-12-09 08:26)
PROC: 5A1223Z Performance of Cardiac Pacing, Continuous (ICD-10-PCS; 2018-12-09 08:26)
PROC: B210YZZ Fluoroscopy of Single Coronary Artery using Other Contrast (ICD-10-PCS; 2018-12-09 08:26)
PROC: B215YZZ Fluoroscopy of Left Heart using Other Contrast (ICD-10-PCS; 2018-12-09 08:26)
DX: I21.4 Non-ST elevation (NSTEMI) myocardial infarction (principal); I50.31 Acute diastolic (congestive) heart failure; D62 Acute posthemorrhagic anemia; I31.9 Disease of pericardium, unspecified; J98.11 Atelectasis; E11.69 Type 2 diabetes mellitus with other specified complication; E78.2 Mixed hyperlipidemia; I25.119 Atherosclerotic heart disease of native coronary artery with unspecified angina pectoris; R11.2 Nausea with vomiting, unspecified; Z87.891 Personal history of nicotine dependence
CPT/HCPCS: 36415; 36600; 71045; 80048; 80053; 80061; 82550; 82553; 82803; 82962; 83036; 83735; 84100; 84484; 85014; 85025; 85610; 85730; 86850; 86900; 86901; 86920; 87081; 93005; 93306; 93312; 93320; 93325; 93458; 93880; 94002; 94003; 94770; 97116; 97162; 97530; 99217; 99285-25; G0378